=== PATIENT | male | born 1990 | race Caucasian/White ===

== ENCOUNTER 2020-07-10 16:53 | Emergency (ER) | payer SELFPAY ==
[~2020-07-10] VITALS: Ht 172.7 cm; Wt 79.4 kg
[2020-07-10 16:55] VITALS: BP 155/102; Ht 172.7 cm; Wt 79.4 kg
== END 2020-07-10 19:58 | disposition home or self-care (01) ==
LOC: ED 16:53
DX: U07.1 COVID-19 (principal); B34.9 Viral infection, unspecified; R03.0 Elevated blood-pressure reading, without diagnosis of hypertension; F17.210 Nicotine dependence, cigarettes, uncomplicated
CPT/HCPCS: U0003